=== PATIENT | female | born 1965 | race African-American/Black ===

== ENCOUNTER 2020-01-07 16:25 | Emergency (ER) | payer OTHER ==
[~2020-01-07] VITALS: Ht 175.3 cm; Wt 113.4 kg
[2020-01-07 17:10] LABS: BASOPHILS % 0.1 % (0.0-1.0); EOSINOPHILS # (AUTO) 0.1 (0.0-0.4); EOSINOPHILS % 1.7 % (0.0-6.0); HEMOGLOBIN 12.1 g/dL (12.0-16.0); LYMPHOCYTES # (AUTO) 1.3 (1.0-3.2); LYMPHOCYTES % 14.9 % (18.0-39.1); MEAN CORPUSCULAR HEMOGLOBIN 25.3 pg (28-32); MEAN CORPUSCULAR VOLUME 81.6 fL (81-99); MONOCYTES # (AUTO) 0.6 (0.2-0.8); MONOCYTES % 6.6 % (4.4-11.3); NEUTROPHILS # (AUTO) 6.4 (2.1-6.9); NEUTROPHILS % 76.3 % (38.7-80.0); PLATELET COUNT 226 x10e3/uL (140-360); RED BLOOD COUNT 4.78 x10e6/uL (3.6-5.1); RED CELL DISTRIBUTION WIDTH 13.5 % (11.7-14.4)
[2020-01-07 17:21] LABS: INR 0.89; PARTIAL THROMBOPLASTIN TIME 26.5 seconds (23.8-35.5); PROTHROMBIN TIME 12.5 seconds (11.9-14.5)
[2020-01-07 17:28] LABS: ALBUMIN 4.4 g/dL (3.5-5.0); ALBUMIN/GLOBULIN RATIO 1.9 (0.8-2.0); ANION GAP 15.5 mmol/L (8-16); CALCIUM 8.8 mg/dL (8.4-10.2); CREATININE, SERUM 0.96 mg/dL (0.57-1.11); POTASSIUM 4.5 mmol/L (3.5-5.1)
[2020-01-07 17:35] LABS: CREATINE KINASE MB 0.4 ng/mL (0-5.0)
--- NOTE | 2020-01-07 17:43 | NUR ---
FO[employer] SERVICE TEAM MEMBER CALLED AT THIS TIME TO CALL OUT PARAOPTOMETRIC.
[2020-01-07 18:03] LABS: BILIRUBIN,URINE NEGATIVE (NEGATIVE); CLARITY,URINE CLEAR (CLEAR); COLOR,URINE YELLOW (YELLOW); KETONES,URINE NEGATIVE (NEGATIVE); LEUKOCYTE ESTERASE ,URINE TRACE (NEGATIVE); NITRITE,URINE NEGATIVE (NEGATIVE); PROTEIN,URINE DIPSTICK NEGATIVE (NEGATIVE); URINE UROBILINOGEN 1 mg/dL (0.2 - 1)
--- NOTE | 2020-01-07 18:04 | Emergency Department Note ---
History of Present Illnes History of Present Illness Chief Complaint: General Medicine Complaints History of Present Illness This is a 54 year old female presents to the ED for b/l leg edema of 4 days duration. patient recently hospitalized for MS exacerbation. Denies cp or sob . Historian: Patient Arrival Mode: Car Onset (how long ago): day(s) (1) Onset quality: gradual (4) Duration (how long): day(s) Timing of current episode: constant Progression: worsening Chronicity: new Context: Reports recent immobilization Relieving factors: none Exacerbating factors: none Associated symptoms: Reports denies other symptoms Past Medical/Family History Physician Review I have reviewed the patient's past medical and family history. Any updates have been documented here. Past Medical History Recent Fever: No Clinical Suspicion of Infectio: No New/Unexplained Change in Ment: No Other Medical History: Hepatitis B MS Past Surgical History: Hysterectomy, Other Surgery: bladder suspension shoulder surgery Social History Smoking Cessation: Never Smoker Alcohol Use: None Any Illegal Drug Use: No Review of Systems Review of Systems Constitutional: Reports no symptoms EENTM: Reports no symptoms Cardiovascular: Reports edema Respiratory: Reports no symptoms Gastrointestinal: Reports no symptoms Genitourinary: Reports no symptoms Musculoskeletal: Reports no symptoms Integumentary: Reports no symptoms Neurological: Reports no symptoms Psychological: Reports no symptoms Endocrine: Reports no symptoms Hematological/Lymphatic: Reports no symptoms Physical Exam Related Data Allergies: Coded Allergies: levofloxacin (Verified Allergy, Severe, hives, 01/07/20) Triage Vital Signs Vital Signs Date Time Temp Pulse Resp B/P (MAP) Pulse Ox O2 Delivery O2 Flow Rate FiO2 01/07/20 16:36 97.4 81 17 126/61 100 Room Air Physical Exam CONSTITUTIONAL Constitutional: Present well-nourished, Present obese HENT HENT: Present normocephalic, Present atraumatic, Present oropharynx clear/moist, Present nose normal HENT L/R: Present left ext ear normal, Present right ext ear normal EYES Eyes: Reports PERRL, Reports conjunctivae normal NECK Neck: Present ROM normal PULMONARY Pulmonary: Present effort normal, Present breath sounds normal CARDIOVASCULAR Cardiovascular: Present LLE edema, Present RLE edema GASTROINTESTINAL Abdominal: Present soft, Present nontender, Present bowel sounds normal GENITOURINARY Genitourinary: Present exam deferred SKIN Skin: Present warm, Present dry MUSCULOSKELETAL Musculoskeletal: Present ROM normal NEUROLOGICAL Neurological: Present alert, Present oriented x 3, Present no gross motor or sensory deficits PSYCHOLOGICAL Psychological: Present mood/affect normal, Present judgement normal Results Laboratory Result Diagram: 01/07/20 1652 01/07/20 165 Laboratory Laboratory Tests Test 01/07/20 17:30 01/07/20 16:52 White Blood Count 8.43 x10e3/uL (4.8-10.8) Red Blood Count 4.78 x10e6/uL (3.6-5.1) Hemoglobin 12.1 g/dL (12.0-16.0) Hematocrit 39.0 % (34.2-44.1) Mean Corpuscular Volume 81.6 fL (81-99) Mean Corpuscular Hemoglobin 25.3 pg (28-32) Mean Corpuscular Hemoglobin Concent 31.0 g/dL (31-35) Red Cell Distribution Width 13.5 % (11.7-14.4) Platelet Count 226 x10e3/uL (140-360) Neutrophils (%) (Auto) 76.3 % (38.7-80.0) Lymphocytes (%) (Auto) 14.9 % (18.0-39.1) Monocytes (%) (Auto) 6.6 % (4.4-11.3) Eosinophils (%) (Auto) 1.7 % (0.0-6.0) Basophils (%) (Auto) 0.1 % (0.0-1.0) Neutrophils # (Auto) 6.4 (2.1-6.9) Lymphocytes # (Auto) 1.3 (1.0-3.2) Monocytes # (Auto) 0.6 (0.2-0.8) Eosinophils # (Auto) 0.1 (0.0-0.4) Basophils # (Auto) 0.0 (0.0-0.1) Absolute Immature Granulocyte (auto 0.03 x10e3/uL (0-0.1) Prothrombin Time 12.5 seconds (11.9-14.5) Prothromb Time International Ratio 0.89 Activated Partial Thromboplast Time 26.5 seconds (23.8-35.5) Sodium Level 140 mmol/L (136-145) Potassium Level 4.5 mmol/L (3.5-5.1) Chloride Level 99 mmol/L (98-107) Carbon Dioxide Level 30 mmol/L (22-29) Anion Gap 15.5 mmol/L (8-16) Blood Urea Nitrogen 14 mg/dL (7-26) Creatinine 0.96 mg/dL (0.57-1.11) Estimat Glomerular Filtration Rate 60 ML/MIN (60-) BUN/Creatinine Ratio 15 (6-25) Glucose Level 90 mg/dL (74-118) Calcium Level 8.8 mg/dL (8.4-10.2) Total Bilirubin 0.5 mg/dL (0.2-1.2) Aspartate Amino Transf (AST/SGOT) 32 IU/L (5-34) Alanine Aminotransferase (ALT/SGPT) 83 IU/L (0-55) Alkaline Phosphatase 103 IU/L (40-150) Creatine Kinase 35 IU/L (29-168) Creatine Kinase MB 0.40 ng/mL (0-5.0) Troponin I 0.004 ng/mL (0-0.300) B-Type Natriuretic Peptide 26.5 pg/mL (0-100) Total Protein 6.7 g/dL (6.5-8.1) Albumin 4.4 g/dL (3.5-5.0) Globulin 2.3 g/dL (2.3-3.5) Albumin/Globulin Ratio 1.9 (0.8-2.0) Lab results reviewed: Yes Imaging Imaging results reviewed: Yes Impressions Venous Duplex b/l LE: NEG for DVT Assessment & Plan Medical Decision Making MDM Diff Dx : CHF, hypoalbuminemia, DVT, Anasarca Assessment & Plan Final Impression: (1) Pedal edema Depart Disposition: HOME, SELF-CARE Last Vital Signs Date Time Temp Pulse Resp B/P (MAP) Pulse Ox O2 Delivery O2 Flow Rate FiO2 01/07/20 16:36 97.4 81 17 126/61 100 Room Air MARY SPEARS DO Jan 07, 2020 18:04
[2020-01-07 18:15] LABS: BACTERIA,URINE MODERATE /HPF; EPITHELIAL CELLS,URINE FEW /LPF; RBC,URINE 0-5 /HPF (0-5)
--- NOTE | 2020-01-07 18:31 | NUR ---
ABRASIVE WORKER AT BEDSIDE FOR VENOUS DUPLEX DOPPLER.
== END 2020-01-07 19:40 | disposition home or self-care (01) ==
LOC: ER 16:56
DX: R60.9 Edema, unspecified (principal); G35 Multiple sclerosis; B19.10 Unspecified viral hepatitis B without hepatic coma
CPT/HCPCS: 36415; 80053; 81001; 82550; 82553; 83880; 84484; 85025; 85610; 85730; 87086; 93970; 99284

== ENCOUNTER → 2020-01-27 | Day surgery (SDC) | payer OTHER ==
[~2020-01-27] MED LIST: AMITRIPTYLINE H10 MG PO; ATORVASTATIN CA20 MG PO; BUPIVACAINE HCL 0.5% INJ 30 ML VIAL INJ ONE; CEFAZOLIN SOD 1 GM/NS 50ML 100 ML IV ONE; DEXAMETHASONE SOD PHOS INJ 4 MG/ML VIAL ONE; FENTANYL CITRATE/PF 100MCG/2 ML INJ ONE; GABAPENTIN300 MG PO; KETOROLAC TROMETHAMINE 30 MG/ML VIAL ONE; LIDOCAINE HCL 2% LOCAL INJ 5 ML SDV VIAL INJ ONE; LIDOCAINE HCL50 ML TOP; MIDAZOLAM HCL 2 MG/2 ML VIAL ONE; MONTELUKAST SOD10 MG PO; NASONEX17 GM; OMEPRAZOLE40 MG; ONDANSETRON HCL INJ 2MG/ML 2ML 2 MG/ML VIAL ONE; PROPOFOL IV EMULSION 10 MG/ML 20 ML VIAL ONE; SEVOFLURANE INHAL SOLN 250 ML PEN BTL ONE; VEMLIDY25 MG
[2020-01-27 13:00] VITALS: BP 111/55
== END | disposition home or self-care (01) ==
LOC: OR 09:56
PROVIDERS: ATTEND Specialist
DX: S83.262A Peripheral tear of lateral meniscus, current injury, left knee, initial encounter (principal); I82.492 Acute embolism and thrombosis of other specified deep vein of left lower extremity; M17.0 Bilateral primary osteoarthritis of knee; M67.52 Plica syndrome, left knee; M22.42 Chondromalacia patellae, left knee; M54.9 Dorsalgia, unspecified; K21.9 Gastro-esophageal reflux disease without esophagitis; R00.1 Bradycardia, unspecified; I45.10 Unspecified right bundle-branch block; B19.10 Unspecified viral hepatitis B without hepatic coma; R53.1 Weakness; Z88.1 Allergy status to other antibiotic agents; Z01.810 Encounter for preprocedural cardiovascular examination; Z01.812 Encounter for preprocedural laboratory examination; Z11.59 Encounter for screening for other viral diseases; Z68.37 Body mass index [BMI] 37.0-37.9, adult
CPT/HCPCS: 29881; 93005; J0690; J1100; J1885; J2001; J2250; J2405; J2704; J3010; U0002